=== PATIENT | male | born 1990 | race Caucasian/White ===

== ENCOUNTER 2017-03-26 16:03 | Emergency (ER) | payer SELFPAY ==
[~2017-03-26 16:03] MED LIST: ABILIFY10 MG; ABILIFY5 MG; ACETAMINOPHEN120 ML PO; AMOXICILLIN500 MG PO; AMOXIL500 M PO; BACTRIM DS TAB1 EAC2 PO; CHLORDIAZEPOXID25 M1 PO; CONCERTA36 MG; EPIPEN 2-P0.3 MG/0.3 IJ; EPIPEN 2-P0.3 MG/0.3 IM; HYDROCODONE PO; HYDROCODONE-ACE15 M2 PO; IBUPROFEN200 M1 PO; IBUPROFEN200 M2 PO; KEFLEX500 M2 PO; KEFLEX500 MG PO; KLONOPIN1 MG PO; MOTRIN600 MG PO; MUCINEX600 MG PO; NO HOME MEDICATION XX; NO HOME MEDS; NORCO 5-325 TA1 EACH PO; NORCO 5/325 TAB1 TAB PO; OMNICEF300 MG PO; PANTOPRAZOLE SO40 M3 PO; PENICILLIN V P500 M1 PO; PREDNISONE20 M1 PO; PREVACID15 MG; PROAIR HFA8.5 GM IH; TRAZODONE50 MG PO; TYLENOL W/CODEI1 TAB; ULTRAM50 M1 PO; ZITHROMAX250 M1 PO; ZOLOFT100 MG PO
[2017-03-26] MEDS ORDERED: ADRENALIN1 MG/1 M3 SC (16:18)
[2017-03-26 16:54] LABS: BASO % 0.6 % (0-2); BASO ABSOLUTE COUNT 0.1 tho/cmm (0.0-0.2); EOS % 6.8 % (0-7); EOSINOPHIL ABSOLUTE COUNT 0.6 tho/cmm (0.0-0.7); HCT-HEMATOCRIT 39.1 % (36.0-53.5); HGB-HEMOGLOBIN 13.3 gm/dl (13.5-17.0); IMMATURE GRANULOCYTES ABSOLUTE 0.01 tho/cmm (0-0.03); IMMATURE GRANULOCYTES PERCENT 0.1 % (0-0.3); LYMPH % 35.2 % (20-45); LYMPH ABSOLUTE COUNT 2.9 tho/cmm (0.8-4.5); MCH (MEAN CORPUSCULAR HGB) 28.2 pg (28.0-32.0); MCV (MEAN CELL VOLUME) 82.8 fl (82.0-96.0); MEAN PLATELET VOLUME 10.8 cmc (9.4-12.4); MONO % 8.6 % (0-12); MONOCYTE ABSOLUTE COUNT 0.7 tho/cmm (0.0-1.2); NEUTROPHILS % 48.7 % (40-80); PLATELET COUNT 177 tho/cmm (150-450); RED BLOOD COUNT 4.72 mil/cmm (4.40-5.70); RED CELL DISTRIBUTION WIDTH 12.1 % (12.4-16.4); WHITE BLOOD COUNT 8.2 tho/cmm (4.0-10.0)
[2017-03-26 17:10] LABS: ANION GAP 12 mmol/L (0-20); BLOOD UREA NITROGEN 10 mg/dl (6-24); CARBON DIOXIDE-VENOUS 25 mmol/L (22-32); CHLORIDE 109 mmol/l (96-110); CREATININE 0.87 mg/dl (0.60-1.30); GLUCOSE 91 mg/dL (70-110); POTASSIUM 3.8 mmol/L (3.7-5.1); SODIUM 142 mmol/L (135-145); eGFR VALUE FOR BLACK >90 mL/Min
[2017-03-26] MEDS ORDERED: PROAIR HFA8.5 GM INH (18:31)
[2017-03-26] MEDS ORDERED: PREDNISONE10 M1 PO (18:31)
[2017-03-26] MEDS ORDERED: TRAMADOL HCL50 M2 PO (18:31)
[2017-06-25] MEDS ORDERED: AUGMENTIN 875-1 EAC2 PO (21:06)
[2017-06-25] MEDS ORDERED: PREDNISONE10 M1 PO (21:06)
[2017-07-01] MEDS ORDERED: NORCO 5-325 TA1 EACH PO (23:43)
[2017-07-01] MEDS ORDERED: IBUPROFEN600 M1 PO (23:43)
[2017-07-01] MEDS ORDERED: CYCLOBENZAPRINE10 M1 PO (23:43)
== END 2017-03-26 18:39 ==
LOC: EDMED 16:03
PROVIDERS: Physician Assistant
DX: J20.9 Acute bronchitis, unspecified (principal); R07.81 Pleurodynia; F17.210 Nicotine dependence, cigarettes, uncomplicated